=== PATIENT | female | born 1955 | race Caucasian/White ===

== ENCOUNTER 2016-07-14 15:09 | Inpatient (IN) | payer OTHER ==
[~2016-07-14] VITALS: Ht 170.2 cm; Wt 59.4 kg
[2016-07-20] MEDS ORDERED: ECON0.052 TOPICAL (12:28)
[2016-07-20] MEDS ORDERED: ALEN1TAB48 PO (12:28)
[2016-07-20] MEDS ORDERED: CALC200S NASAL (12:28)
[2016-07-20] MEDS ORDERED: CIPR500T2 PO (12:28)
[2016-07-20] MEDS ORDERED: IMIT50TA PO (12:28)
[2016-07-23] MEDS ORDERED: INSULIN HUMAN REGULAR 1,000 UNITS/10 ML VIAL SQ PRN (13:00)
[2016-07-23] MEDS ORDERED: LACTATED RINGER'S 1000 ML IV SCH (13:00)
[2016-07-23] MEDS ORDERED: SODIUM CHLORID 0.9% 500 ML IV SCH (13:00)
[2016-07-23] MEDS ORDERED: METOPROLOL TARTRATE 25 MG TAB PO PRN (13:00)
[2016-07-23 13:14] VITALS: BP 118/48; PULSE 79; RESP 20; TEMP 98.5; O2SAT 97
[2016-07-23] MEDS ORDERED: ceFAZolin INJ 1,000 MG VIAL ONE (13:48)
[2016-07-23] MEDS ORDERED: SODIUM CHLORIDE 0.9% INJ 100 ML ONE (13:48)
[2016-07-23] MEDS ORDERED: ALVIMOPAN 12 MG CAPSULE ONE (13:48)
[2016-07-23] MEDS ORDERED: metroNIDAZOLE 500 MG INJ 100 ML IV ONE (13:48)
[2016-07-23] MEDS ORDERED: ceFAZolin 1,000 MG/NS 100 ML IV SCH ×2 (14:15)
[2016-07-23] MEDS ORDERED: ALVIMOPAN 12 MG CAPSULE - On Call PO SCH (14:15)
[2016-07-23] MEDS ORDERED: METRONIDAZOLE 500 MG/100 ML ISONTONIC SOLN IV SCH (14:15)
[2016-07-23] MEDS ORDERED: DEXT 5%-NACL 0.9% 1000 ML INJ 1,000 ML IV SCH (14:15)
[2016-07-23] MEDS ORDERED: PROPOFOL 200 MG/20 ML AMP IV ONE (14:54)
[2016-07-23] MEDS ORDERED: NORMOSOL R INJ 1,000 ML IV ONE (14:54)
[2016-07-23] MEDS ORDERED: ePHEDrine/NS 25 MG/5 ML SYR IV ONE (14:54)
[2016-07-23] MEDS ORDERED: PHENYLEPH/NS 1000 MCG/10 ML SYR IV ONE (14:54)
[2016-07-23] MEDS ORDERED: ONDANSETRON HCL 4 MG/2 ML VIAL IV PUSH ONE (14:54)
[2016-07-23] MEDS ORDERED: FAMOTIDINE 20 MG/2 ML VIAL ONE (15:04)
[2016-07-23] MEDS ORDERED: DEXAMETHASONE SOD PHOS 4 MG/ML VIAL ONE (15:04)
[2016-07-23] MEDS ORDERED: MIDAZOLAM HCL 2 MG/2 ML VIAL ONE (15:04)
[2016-07-23] MEDS ORDERED: BUPIVACAINE HCL PF 0.5% 30 ML VIAL ONE (15:25)
[2016-07-23] MEDS ORDERED: FLUORESCEIN SOD 10% SOLN 500 MG/5 ML AMP ONE (15:25)
--- NOTE | 2016-07-23 16:31 | PD.OP ---
Operative Report Date of Surgery: Jul 23, 2016 Preoperative Diagnosis: Colovesical fistula Postoperative Diagnosis: same Procedure: cysto with b/l ureteral catheter insertion Anesthesia: GETA Surgeon: Russ Murray Metal Cut Off Saw Tender(s): none Resident Surgeon: none Operation and Findings: 61 y.o female with h/o colovesical fistula. Requests were made for bilateral ureteral catheter insertion. Patient is brought to operating room and identified by myself as Yamile Valles. She was prepped and draped in usual sterile fashion, received preprocedure antibiotics and general endotracheal tube anesthesia was administered. She was placed in dorsal lithotomy position. A 22 [place]ican scope was inserted in the bladder. The left ureter orifice was identified and a 5 [place] open catheter was inserted without difficulty. This was repeated on the right side without difficulty. A 16 [place] Stephen was inserted in the bladder and the catheters were anchored to the Stephen catheter. She tolerated the procedure well. Russ Murray DO Jul 23, 2016 16:31
[2016-07-23] MEDS ORDERED: ACETAMINOPHEN 1000 MG/100 ML VIAL IV ONE (17:37)
[2016-07-23] MEDS ORDERED: SUGAMMADEX SODIUM 200 MG/2 ML VIAL IV PUSH ONE ×2 (17:37)
[2016-07-23] MEDS ORDERED: fentaNYL CITRATE 250 MCG/5 ML AMP ONE ×2 (17:41)
[2016-07-23] MEDS ORDERED: ONDANSETRON HCL 4 MG/2 ML VIAL IV PRN (18:30)
[2016-07-23] MEDS ORDERED: ENALAPRILAT 1.25 MG/ML VIAL IV PRN (18:30)
[2016-07-23] MEDS ORDERED: POTASSIUM CHLOR 20 MEQ PREMIX 100 ML IV PRN (18:30)
[2016-07-23] MEDS ORDERED: SODIUM CHLORIDE 0.9% FLUSH 10 ML FLUSH IV FLUSH PRN (18:30)
[2016-07-23] MEDS ORDERED: Post-op Orders (for Pharmacy) MISC XX ONE (18:30)
[2016-07-23] MEDS ORDERED: POTASSIUM CHLOR 40 MEQ PREMIX 100 ML IV PRN (18:30)
[2016-07-23] MEDS ORDERED: ZOLPIDEM TARTRATE 5 MG TAB PO PRN (18:30)
[2016-07-23] MEDS ORDERED: NALOXONE HCL 0.4 MG/ML AMP IV PRN (18:30)
[2016-07-23] MEDS ORDERED: BENZOCAINE 6 MG/MENTHOL 10 MG LOZENGE SUCK-ON PRN (18:30)
[2016-07-23] MEDS ORDERED: ECONAZOLE 1% TOPICAL PRN (18:45)
[2016-07-23] MEDS ORDERED: D5-LR + KCL 20 MEQ INJ 1,000 ML ONE (18:47)
[2016-07-23] MEDS: D5-LR + KCL 20 MEQ INJ 1,000 ML IV SCH ×2 (18:50→23:27)
[2016-07-23] MEDS ORDERED: DO NOT ADM ANY ANTICOAGULANT DRUGS XX PRN (19:00)
[2016-07-23] MEDS ORDERED: *morphine SULFATE 8 MG/ML PERIprocedure ONLY ONE ×3 (19:00→19:54)
[2016-07-23] MEDS: MORPHINE SULFATE 30 MG/30 ML PCA IV SCH (19:17)
[2016-07-23 19:30] LABS: AUTOMATED NEUTROPHIL # 9.6 TH/MM3 (1.8-7.7); BASOPHIL % 0.3 % (0.0-2.0); EOSINOPHIL % 0.1 % (0.0-4.0); HEMATOCRIT 30.7 % (35.0-46.0); HEMO FLAGS DIFF FINAL; LYMPHOCYTE # 0.6 TH/MM3 (1.0-4.8); MEAN CELL VOLUME 81.2 FL (80.0-100.0); MEAN CORPUSCULAR HEMOGLOBIN 27.3 PG (27.0-34.0); MEAN CORPUSCULAR HGB CONC 33.6 % (32.0-36.0); MONO % 2.1 % (0.0-8.0); NEUT % 91.5 % (16.0-70.0); PLATELET COUNT 189 TH/MM3 (150-450); RED BLOOD COUNT 3.78 MIL/MM3 (4.00-5.30); RED CELL DISTRIBUTION WIDTH 14.6 % (11.6-17.2); WHITE BLOOD COUNT 10.5 TH/MM3 (4.0-11.0)
[2016-07-23] MEDS: ceFAZolin 2 GM PREMIX 50 ML IV SCH (19:30)
[2016-07-23 19:46] LABS: BICARBONATE 24.9 MEQ/L (21.0-32.0)
[2016-07-23] MEDS: FUROSEMIDE 20 MG/2 ML VIAL IV SCH (20:00)
[2016-07-23 20:03] LABS: CALCIUM-PROTEIN CORRECTED 7.2 MG/DL (8.5-10.1); POTASSIUM 2.6 MEQ/L (3.5-5.1)
[2016-07-23] MEDS ORDERED: *HYDROmorphone PF 1 MG VIAL PERIprocedural Use ONLY ONE (20:12)
[2016-07-23 20:40] VITALS: BP 80/53; PULSE 97; RESP 16; TEMP 97.8; O2SAT 98
[2016-07-23 21:00] VITALS: PULSE 90
[2016-07-23] MEDS: SODIUM CHLORIDE 0.9% FLUSH 10 ML FLUSH IV FLUSH SCH (21:00)
[2016-07-23 22:00] VITALS: PULSE 80
[2016-07-23] MEDS: PCA - TOTAL MG MORPHINE DELIVERED PER SHIFT SCH (22:00)
[2016-07-23] MEDS: metroNIDAZOLE 500 MG INJ 100 ML IV SCH (22:03)
[2016-07-23] MEDS: METOCLOPRAMIDE HCL 10 MG/2 ML VIAL IVS SCH (22:04)
[2016-07-23 23:00] VITALS: PULSE 74; RESP 20
[2016-07-23 23:30] VITALS: BP 114/53; PULSE 71; RESP 16; TEMP 97.5; O2SAT 99
[2016-07-24] VITALS (26 sets, daily range): BP systolic 115–145; BP diastolic 59–70; PULSE 64–96; RESP 12–20; TEMP 97.3–98.8; O2SAT 95–98
[2016-07-24] MEDS: D5-LR + KCL 20 MEQ INJ 1,000 ML IV SCH ×4 (04:13→23:33)
[2016-07-24] MEDS: ceFAZolin 2 GM PREMIX 50 ML IV SCH ×2 (05:27→12:51)
[2016-07-24] MEDS: metroNIDAZOLE 500 MG INJ 100 ML IV SCH ×2 (05:27→15:02)
[2016-07-24] MEDS: PCA - TOTAL MG MORPHINE DELIVERED PER SHIFT SCH ×3 (05:28→22:00)
[2016-07-24] MEDS: METOCLOPRAMIDE HCL 10 MG/2 ML VIAL IVS SCH ×4 (05:28→23:27)
[2016-07-24 06:43] LABS: AUTOMATED NEUTROPHIL # 9.7 TH/MM3 (1.8-7.7); BASOPHIL % 0.1 % (0.0-2.0); HEMATOCRIT 32.7 % (35.0-46.0); HEMO FLAGS DIFF FINAL; LYMPHOCYTE # 0.7 TH/MM3 (1.0-4.8); MEAN CELL VOLUME 80.6 FL (80.0-100.0); MEAN CORPUSCULAR HEMOGLOBIN 26.1 PG (27.0-34.0); MEAN CORPUSCULAR HGB CONC 32.4 % (32.0-36.0); MONO % 7.1 % (0.0-8.0); NEUT % 86.8 % (16.0-70.0); PLATELET COUNT 215 TH/MM3 (150-450); RED BLOOD COUNT 4.06 MIL/MM3 (4.00-5.30); WHITE BLOOD COUNT 11.1 TH/MM3 (4.0-11.0)
[2016-07-24 07:19] LABS: BICARBONATE 28.5 MEQ/L (21.0-32.0); POTASSIUM 4.3 MEQ/L (3.5-5.1)
[2016-07-24] MEDS: PANTOPRAZOLE SODIUM 40 MG VIAL IVP SCH (10:21)
[2016-07-24] MEDS: FUROSEMIDE 20 MG/2 ML VIAL IV SCH ×2 (10:21→22:16)
[2016-07-24] MEDS: ALVIMOPAN 12 MG CAPSULE - Post-op dosing PO SCH ×2 (10:21→22:16)
[2016-07-24] MEDS: KETOROLAC TROMETHAMINE 30 MG/ML (IVP) VIAL IVP PRN ×2 (10:22→23:25)
[2016-07-24] MEDS: SODIUM CHLORIDE 0.9% FLUSH 10 ML FLUSH IV FLUSH SCH ×2 (10:22→22:20)
--- NOTE | 2016-07-24 17:45 | HHI.PR ---
Subjective Remarks No N or V. Some bilious stool in Ileostomy bag. C/O pain Objective Vital Signs Date Time Temp Pulse Resp B/P Pulse Ox O2 Delivery O2 Flow Rate FiO2 07/24/16 16:00 98.7 80 15 121/60 98 07/24/16 15:02 15 07/24/16 14:00 16 07/24/16 13:00 84 07/24/16 12:00 98.0 78 16 134/59 95 07/24/16 12:00 96 07/24/16 11:00 88 07/24/16 10:00 88 07/24/16 09:00 78 07/24/16 08:00 97.3 77 15 118/69 96 07/24/16 08:00 86 07/24/16 07:00 80 07/24/16 06:00 20 07/24/16 06:00 80 07/24/16 05:28 20 07/24/16 05:00 78 07/24/16 04:00 80 07/24/16 03:39 97.9 79 12 115/64 98 07/24/16 03:00 71 07/24/16 02:00 70 07/24/16 01:00 76 07/24/16 00:00 76 07/23/16 23:30 97.5 71 16 114/53 99 07/23/16 23:00 20 07/23/16 23:00 74 07/23/16 22:00 80 07/23/16 21:00 90 07/23/16 20:40 97.8 97 16 80/53 98 07/23/16 20:00 90 16 112/70 98 Nasal Cannula 2 07/23/16 19:30 82 16 134/65 99 Nasal Cannula 2 07/23/16 19:17 16 07/23/16 19:15 82 16 127/67 99 Nasal Cannula 2 07/23/16 19:00 82 16 112/52 99 Nasal Cannula 2 07/23/16 18:45 84 16 153/66 99 Nasal Cannula 2 07/23/16 18:33 98.5 100 16 141/69 99 Nasal Cannula 2 I/O 07/23/16 07/23/16 07/23/16 07/24/16 07/24/16 07/24/16 07:00 15:00 23:00 07:00 15:00 23:00 Intake Total 100 ml 2240 ml 2020 ml Output Total 610 ml 1970 ml 940 ml Balance -510 ml 270 ml 1080 ml Intake Oral 240 ml 420 ml IV Total 100 ml 2000 ml 1600 ml Output Urine Total 550 ml 1800 ml 800 ml Drainage Total 60 ml 170 ml 140 ml # Bowel Movements 0 0 Result Diagram: 07/24/1608 07/24/16 06 Objective Remarks VS-S Abd: flat,soft,stoma pink I&Os-OK Labs-OK Assessment and Plan Assessment and Plan Stable POD#1 Decrease IVs, OOB,ambulate. D/C RN ADMISSION in AM. FLD in AM Dillon Marie MD Jul 24, 2016 17:45
[2016-07-24] MEDS: ACETAMINOPHEN/HYDROcodone 325 MG/5 MG TAB PO PRN (18:37)
[2016-07-24] MEDS ORDERED: ALVIMOPAN 12 MG CAPSULE PO SCH (21:00)
[2016-07-25] VITALS (28 sets, daily range): BP systolic 113–136; BP diastolic 63–77; PULSE 72–98; RESP 16–18; TEMP 98–98.8; O2SAT 95–97
[2016-07-25] MEDS: MORPHINE SULFATE 30 MG/30 ML PCA IV SCH (04:44)
[2016-07-25] MEDS: KETOROLAC TROMETHAMINE 30 MG/ML (IVP) VIAL IVP PRN ×2 (05:56→16:48)
[2016-07-25] MEDS: METOCLOPRAMIDE HCL 10 MG/2 ML VIAL IVS SCH ×3 (05:59→17:55)
[2016-07-25] MEDS: PCA - TOTAL MG MORPHINE DELIVERED PER SHIFT SCH (06:00)
[2016-07-25 06:20] LABS: AUTOMATED NEUTROPHIL # 10.4 TH/MM3 (1.8-7.7); BASOPHIL % 0.2 % (0.0-2.0); EOSINOPHIL # 0.2 TH/MM3 (0-0.4); EOSINOPHIL % 1.4 % (0.0-4.0); HEMATOCRIT 28.5 % (35.0-46.0); HEMO FLAGS DIFF FINAL; LYMPH % 12.7 % (9.0-44.0); LYMPHOCYTE # 1.7 TH/MM3 (1.0-4.8); MEAN CELL VOLUME 80.1 FL (80.0-100.0); MEAN CORPUSCULAR HEMOGLOBIN 26.1 PG (27.0-34.0); MEAN CORPUSCULAR HGB CONC 32.6 % (32.0-36.0); MONO % 8.4 % (0.0-8.0); NEUT % 77.3 % (16.0-70.0); PLATELET COUNT 203 TH/MM3 (150-450); RED BLOOD COUNT 3.56 MIL/MM3 (4.00-5.30); RED CELL DISTRIBUTION WIDTH 14.5 % (11.6-17.2); WHITE BLOOD COUNT 13.4 TH/MM3 (4.0-11.0)
[2016-07-25 06:37] LABS: BICARBONATE 29.4 MEQ/L (21.0-32.0); POTASSIUM 3.9 MEQ/L (3.5-5.1)
[2016-07-25] MEDS: SODIUM CHLORIDE 0.9% FLUSH 10 ML FLUSH IV FLUSH SCH ×2 (09:00→21:00)
[2016-07-25] MEDS: PANTOPRAZOLE SODIUM 40 MG VIAL IVP SCH (09:16)
[2016-07-25] MEDS: D5-LR + KCL 20 MEQ INJ 1,000 ML IV SCH ×2 (09:16→22:12)
[2016-07-25] MEDS: FUROSEMIDE 20 MG/2 ML VIAL IV SCH ×2 (09:16→22:14)
[2016-07-25] MEDS: ALVIMOPAN 12 MG CAPSULE - Post-op dosing PO SCH ×2 (09:17→22:14)
[2016-07-25] MEDS: ACETAMINOPHEN/HYDROcodone 325 MG/5 MG TAB PO PRN ×2 (09:17→22:13)
--- NOTE | 2016-07-25 11:58 | HHI.PR ---
Subjective Remarks POD#2 s/p LAR, ileostomy more comfortable Objective Vital Signs Date Time Temp Pulse Resp B/P Pulse Ox O2 Delivery O2 Flow Rate FiO2 07/25/16 11:00 98.0 77 18 114/67 96 07/25/16 09:00 88 07/25/16 08:00 72 07/25/16 07:00 98.5 79 18 115/63 95 07/25/16 07:00 73 07/25/16 06:31 16 07/25/16 06:00 80 07/25/16 06:00 16 07/25/16 05:00 86 07/25/16 04:49 92 16 136/73 96 07/25/16 04:44 16 07/25/16 04:00 74 07/25/16 03:00 77 07/25/16 02:00 72 07/25/16 01:00 80 07/25/16 00:00 78 07/24/16 23:00 80 07/24/16 23:00 98.5 87 16 145/70 98 07/24/16 22:00 16 07/24/16 22:00 16 07/24/16 22:00 84 07/24/16 21:00 76 07/24/16 20:10 98.8 87 18 131/66 96 07/24/16 20:00 78 07/24/16 19:00 85 07/24/16 18:04 79 07/24/16 17:00 64 07/24/16 16:00 98.7 80 15 121/60 98 07/24/16 16:00 64 07/24/16 15:02 15 07/24/16 15:00 82 07/24/16 14:00 16 07/24/16 14:00 78 07/24/16 13:00 84 07/24/16 12:00 98.0 78 16 134/59 95 07/24/16 12:00 96 I/O 07/24/16 07/24/16 07/24/16 07/25/16 07/25/16 07/25/16 07:00 15:00 23:00 07:00 15:00 23:00 Intake Total 2240 ml 2020 ml 3620 ml Output Total 1970 ml 940 ml 1930 ml Balance 270 ml 1080 ml 1690 ml Intake Oral 240 ml 420 ml 2420 ml IV Total 2000 ml 1600 ml 1200 ml Output Urine Total 1800 ml 800 ml 1850 ml Drainage Total 170 ml 140 ml 80 ml # Bowel Movements 0 0 0 Result Diagram: 07/25/1628 07/25/16527 Objective Remarks Abdomen soft, nondistended, tender Dressings c/d/i Ileostomy pink, liquid output Assessment and Plan Assessment and Plan Mobilize Slowly advance diet Alicia Correa MD Jul 25, 2016 11:58
[2016-07-26] MEDS: KETOROLAC TROMETHAMINE 30 MG/ML (IVP) VIAL IVP PRN (00:18)
[2016-07-26] MEDS: METOCLOPRAMIDE HCL 10 MG/2 ML VIAL IVS SCH ×5 (00:18→23:24)
[2016-07-26 04:57] VITALS: BP 124/70; PULSE 86; RESP 16; O2SAT 96
[2016-07-26] MEDS: ACETAMINOPHEN/HYDROcodone 325 MG/5 MG TAB PO PRN ×4 (05:22→18:01)
[2016-07-26 07:00] VITALS: BP 125/78; PULSE 86; RESP 18; TEMP 98.4; O2SAT 94
[2016-07-26] MEDS: SODIUM CHLORIDE 0.9% FLUSH 10 ML FLUSH IV FLUSH SCH ×2 (08:14→19:40)
[2016-07-26] MEDS: ALVIMOPAN 12 MG CAPSULE - Post-op dosing PO SCH ×2 (08:14→19:42)
[2016-07-26] MEDS: FUROSEMIDE 20 MG/2 ML VIAL IV SCH (08:14)
[2016-07-26] MEDS: PANTOPRAZOLE SODIUM 40 MG VIAL IVP SCH (08:14)
[2016-07-26] MEDS: D5-LR + KCL 20 MEQ INJ 1,000 ML IV SCH ×2 (08:15→23:24)
[2016-07-26 11:00] VITALS: BP 111/67; PULSE 89; RESP 18; TEMP 98.1; O2SAT 96
--- NOTE | 2016-07-26 13:04 | HHI.PR ---
Subjective Remarks POD#3 s/p LAR, ileostomy more comfortable, tolerating diet Objective Vital Signs Date Time Temp Pulse Resp B/P Pulse Ox O2 Delivery O2 Flow Rate FiO2 07/26/16 11:00 98.1 89 18 111/67 96 07/26/16 07:00 98.4 86 18 125/78 94 07/26/16 04:57 86 16 124/70 96 07/25/16 23:59 93 16 124/77 97 07/25/16 23:00 79 07/25/16 22:00 88 07/25/16 21:00 78 07/25/16 20:00 98 07/25/16 19:15 98.8 84 16 119/64 95 07/25/16 19:00 82 07/25/16 18:00 77 07/25/16 17:00 76 07/25/16 16:00 83 07/25/16 15:00 98.5 84 18 113/67 96 07/25/16 15:00 73 07/25/16 14:00 16 07/25/16 14:00 86 I/O 07/25/16 07/25/16 07/25/16 07/26/16 07/26/16 07/26/16 07:00 15:00 23:00 07:00 15:00 23:00 Intake Total 3620 ml 1200 ml 1290 ml Output Total 1930 ml 2435 ml 1320 ml Balance 1690 ml -1235 ml -30 ml Intake Oral 2420 ml 1200 ml 450 ml IV Total 1200 ml 840 ml Output Urine Total 1850 ml 2080 ml 800 ml Stool Total 225 ml 400 ml Drainage Total 80 ml 130 ml 120 ml # Bowel Movements 0 1 Result Diagram: 07/25/16 0528 07/25/16 0528 Objective Remarks Abdomen soft, nondistended, tender wound clean, scant serosanguinous drainage Ileostomy pink, liquid output Assessment and Plan Assessment and Plan Mobilize Advance diet Ileostomy teaching Alicia Correa MD Jul 26, 2016 13:04
[2016-07-26 16:00] VITALS: BP 128/58; PULSE 85; RESP 17; TEMP 98.6; O2SAT 95
[2016-07-26 20:00] VITALS: BP 122/67; PULSE 89; RESP 17; TEMP 97.3; O2SAT 96
[2016-07-27] VITALS: BP 120/65; PULSE 82; RESP 17; TEMP 97; O2SAT 97
[2016-07-27] MEDS: ACETAMINOPHEN/HYDROcodone 325 MG/5 MG TAB PO PRN ×6 (00:06→21:27)
[2016-07-27] MEDS: METOCLOPRAMIDE HCL 10 MG/2 ML VIAL IVS SCH ×4 (06:14→21:27)
[2016-07-27 08:00] VITALS: BP 130/61; PULSE 88; RESP 18; TEMP 97.4; O2SAT 95
[2016-07-27] MEDS: ALVIMOPAN 12 MG CAPSULE - Post-op dosing PO SCH ×2 (08:13→20:26)
[2016-07-27] MEDS: PANTOPRAZOLE SODIUM 40 MG VIAL IVP SCH (08:14)
[2016-07-27] MEDS: SODIUM CHLORIDE 0.9% FLUSH 10 ML FLUSH IV FLUSH SCH ×2 (08:15→20:27)
--- NOTE | 2016-07-27 10:29 | HHI.FF ---
Face to Face Verification Diagnosis: (1) Diverticulitis large intestine (2) Ileostomy in place (3) Status post partial resection of colon Home Health Nursing Order: Medical education Wound care and dressing changes Nursing assessment with vital signs Instructions: Stoma teaching and measure Ileostomy total output every 24hrs. Call if over 1200 cc in 24hrs I have seen patient Yamile Valles on 07/27/16. My clinical findings support the need for the requested home health care services because: Deconditioned w/ increased weakness Limited ability to care for self I certify that my clinical findings support that this patient is homebound because: Post-op weakness Unsteady gait/balance Dillon Marie MD Jul 27, 2016 10:29
--- NOTE | 2016-07-27 10:32 | HHI.PR ---
Subjective Remarks No N or V. Stool in Ileostomy bag. C/O pain Objective Vital Signs Date Time Temp Pulse Resp B/P Pulse Ox O2 Delivery O2 Flow Rate FiO2 07/27/16 08:00 97.4 88 18 130/61 95 07/27/16 00:00 97.0 82 17 120/65 97 07/26/16 20:00 97.3 89 17 122/67 96 07/26/16 16:00 98.6 85 17 128/58 95 07/26/16 11:00 98.1 89 18 111/67 96 I/O 07/26/16 07/26/16 07/26/16 07/27/16 07/27/16 07/27/16 07:00 15:00 23:00 07:00 15:00 23:00 Intake Total 1290 ml 1670 ml 596 ml Output Total 1320 ml 2545 ml 830 ml Balance -30 ml -875 ml -234 ml Intake Oral 450 ml 1320 ml 240 ml IV Total 840 ml 350 ml 356 ml Output Urine Total 800 ml 1500 ml 500 ml Stool Total 400 ml 875 ml 250 ml Drainage Total 120 ml 170 ml 80 ml Result Diagram: 07/25/16 0528 07/25/16 0528 Objective Remarks VS-S Abd: flat,soft,stoma pink I&Os-OK Labs-OK Assessment and Plan Assessment and Plan Stable POD#4 Decrease IVs, OOB,ambulate. Increase to regular diet. Drain removed by me. D/C tomorrow with [facility] Dillon Marie MD Jul 27, 2016 10:32
[2016-07-27 12:00] VITALS: BP 128/60; PULSE 96; RESP 18; TEMP 97.4; O2SAT 99
--- NOTE | 2016-07-27 13:11 | MP ---
cc: LUCITA MARIE M.D. DATE OF SURGERY 07/23/2016 PREOPERATIVE DIAGNOSIS Diverticulitis with colovaginal fistula. POSTOPERATIVE DIAGNOSIS Diverticulitis with colovaginal fistula. PROCEDURE 1. Rectosigmoidectomy with colorectal anastomosis. 2. Small bowel resection with anastomosis. 3. Closure of vaginal cuff. 4. Mobilization of the splenic flexure with an omental flap in the pelvis. ANESTHESIA General endotracheal. SURGEON Dr. Marie. HANDLE MAKER Dr. Boland. ESTIMATED BLOOD LOSS 500 cc. OPERATING TIME 2 hours and 15 minutes OPERATIVE FINDINGS This patient saw me in the office about three weeks ago with a newly developed colovaginal fistula. She had severe diverticular disease on colonoscopy approximately eight months ago elsewhere requiring an upper GI endoscope to pass the sigmoid colon. Since that time she developed several bouts of diverticulitis and was treated with antibiotics and then eventually developed this colovaginal fistula as mentioned. She has had a previous total abdominal hysterectomy. On exam in my office she had a fistula to the apex of her vagina and she had a large palpable cul-de-sac mass consistent with diverticulitis with the sigmoid in the cul-de-sac. Exploration of the abdominal cavity at surgery revealed that the liver, gallbladder and stomach were all palpably normal. The colon was all palpably normal except for the sigmoid colon. There was a mass in the cul-de-sac and there was a loop of distal small bowel stuck down in that mass. For this reason the loop of small bowel was resected en bloc with the sigmoid and upper rectum. A fairly low rectal anastomosis was done because of the inflammation in the upper and middle rectum due to the diverticular mass. Therefore diverting loop ileostomy was done as well to protect the anastomosis. OPERATIVE TECHNIQUE The patient was placed on the table in the supine position. After adequate general endotracheal anesthesia, the legs were placed in the perineal-lithotomy position and the abdomen and perineum were prepped and draped in usual manner. A vaginal prep was also done. Next, a transverse infraumbilical skin incision was made and carried down through the subcutaneous tissue and rectus muscles. The peritoneal cavity was entered with the above-mentioned findings. Our attention was first turned to the sigmoid and it was mobilized along its peritoneal reflection including the descending colon up to and including the splenic flexure. The cecum was also mobilized up out of pelvis; however, it was tethered by the terminal ileum which was stuck densely to the process in the pelvis. The terminal ileum was divided with an Ethicon ISI 55 stapling device and the ileum just proximal to this mass also was divided with an Ethicon ISI 55 stapling device. The mesentery of the small bowel was then clamped, cut and successively ligated in order to move the remainder of the small bowel up out of the pelvis. Once this was done, the superior hemorrhoidal vessels were doubly clamped, cut and doubly ligated with 0 Vicryl ligatures and the retrorectal space was entered. The dissection was taken down posteriorly and laterally and the left and right ureters were identified and protected at all times after Dr. Russ Murray placed bilateral ureteral catheters. The lateral pelvic peritoneum was incised bilaterally and the dissection was taken anteriorly posterior to the bladder, taken down along the bladder posteriorly until the vaginal cuff was reached. A sponge stick was then placed in the vagina and the dissection off the vaginal cuff was done opening the vaginal cuff in the process. Once this was done, the remainder of the cul-de-sac posterior to the vagina and anterior to the rectum was mobilized to the pelvic floor. The rectum was quite large and because we are in the lower-third of the rectum and the size of the rectum, the mesentery was divided with electrocautery and the rectum was then stapled closed with a TX 60 stapler using the green staple height billie. The rectum was then divided bringing the specimen up out of the pelvis. Our attention was then turned to the vagina and the apex of the vagina was closed with 0 Vicryl suture in a single running fashion. Once this was done, hemostasis was maintained throughout with electrocautery and ligature. The pelvis was irrigated thoroughly and aspirated dry. Next, our attention was turned to the splenic flexure which was fully mobilized as was the transverse colon and the omentum was mobilized from the transverse colon so that we would have an omental flap to placed in the pelvis. Once this was accomplished, the remainder of the sigmoid mesentery was cleared at the point of division of the colon. The pursestring stapling device was placed on the colon and the colon was divided. The anvil of the Ethicon-33 stapling device was placed in the proximal bowel and the proximal pursestring was tied down. Dr. Boland then went below and placed the EEA instrument transanally and the trocar was brought out through the left corner of the rectal staple line and the instrument was connected, closed and fired creating the anastomosis with no tension on the anastomosis and some tension on the blood supply. The colon fell nicely into the deep portion of the pelvis. The left colic vessels were left intact. Next, our attention was turned to the small bowel and the small bowel was reanastomosed using the Ethicon ISI 55 stapling device along the antimesenteric border of the bowel and then the enterotomy was closed with a TX60 blue staple height stapler. The opening in the mesentery was approximated with a running 3-0 Vicryl suture. Once this was all done, diverting loop ileostomy was created by creating a stoma site in the right upper quadrant in the lateral portion of the rectus muscle and then the point in the small bowel was chosen for the loop ileostomy and opening was made in the mesentery and the bowel was brought out through the stoma site. The abdominal cavity was irrigated thoroughly with several liters of saline solution. A flat Vance drain was placed through a right lower quadrant stab wound in the pelvis posterior to the colorectal anastomosis. Because of difficult dissection and the lowness of the anastomosis, ileostomy diversion was done. The omentum was brought down the left colic gutter and placed behind the colorectal anastomosis and then wrapped around to the front the colorectal anastomosis from the vaginal cuff closure. Once this was accomplished, all the bowels were replaced in the abdominal cavity in an customer experience analyst manner. The abdominal cavity had been irrigated with several liters of saline solution, aspirated dry and hemostasis was achieved with electrocautery and ligature. Once this was done, the abdominal cavity was then closed in layers using a double-stranded #1 PDS for the posterior rectus sheath, irrigating the muscle layer with a liter of saline solution, then closed the anterior rectus sheath with double-stranded #1 PDS as well. The subcutaneous tissue was irrigated thoroughly with saline solution, aspirated dry and skin was closed with running 3-0 Vicryl subcuticular sutures. The ileostomy was closed distally with a TX60 blue staple height stapling device and then the ileostomy was matured in an end-ileostomy fashion using interrupted 3-0 Vicryl sutures. Once this was done, a 57-mm appliance was placed on the ileostomy and dressings were applied. Sponge, needle and instrument counts were reported as correct. The estimated blood loss was 500 cc. The patient tolerated the procedure well and left the operating room in good condition. OPERATING TIME 2 hours and 15 minutes. MD LAURA Francois/YVONNE /10:51 PM /12:52 PM
[2016-07-27] MEDS: D5-LR + KCL 20 MEQ INJ 1,000 ML IV SCH (15:47)
[2016-07-27 16:00] VITALS: BP 127/59; PULSE 79; RESP 17; TEMP 97.9; O2SAT 97
[2016-07-27 20:00] VITALS: BP 120/56; PULSE 78; RESP 18; TEMP 97; O2SAT 97
[2016-07-28] VITALS: BP 112/55; PULSE 79; RESP 18; TEMP 98.2; O2SAT 96
[2016-07-28] MEDS: ACETAMINOPHEN/HYDROcodone 325 MG/5 MG TAB PO PRN ×5 (01:22→18:03)
[2016-07-28] MEDS: METOCLOPRAMIDE HCL 10 MG/2 ML VIAL IVS SCH ×3 (05:25→16:31)
[2016-07-28 08:00] VITALS: BP 114/53; PULSE 76; RESP 18; TEMP 96.2; O2SAT 97
[2016-07-28] MEDS: PANTOPRAZOLE SODIUM 40 MG VIAL IVP SCH (09:00)
[2016-07-28] MEDS: SODIUM CHLORIDE 0.9% FLUSH 10 ML FLUSH IV FLUSH SCH (09:00)
[2016-07-28] MEDS: ALVIMOPAN 12 MG CAPSULE - Post-op dosing PO SCH (09:10)
[2016-07-28] MEDS: D5-LR + KCL 20 MEQ INJ 1,000 ML IV SCH (09:10)
[2016-07-28] MEDS ORDERED: HYDR-3516 PO (15:54)
[2016-07-28 16:00] VITALS: BP 108/53; PULSE 86; RESP 19; TEMP 96.3; O2SAT 98
--- NOTE | 2016-08-16 06:10 | MD ---
cc: DANDY MANNING ADMISSION DATE: 07/23/2016 DISCHARGE DATE: 07/28/2016 ADMISSION DIAGNOSIS Diverticulitis with colovaginal fistula. DISCHARGE DIAGNOSIS Diverticulitis with colovaginal fistula. OPERATIVE PROCEDURE 07/23/2016 1. Rectosigmoidectomy with colorectal anastomosis. 2. Small bowel resection with anastomosis. 3. Closure of vaginal cuff. 4. Mobilization of the splenic flexure and omental flap placement in the pelvis. HISTORY: This patient saw me in the office approximately three weeks prior to this admission with a newly developed colovaginal fistula. She had severe diverticular disease on colonoscopy approximately 8 months ago done elsewhere requiring an upper GI endoscope to pass the sigmoid colon. At that time she developed several bouts of diverticulitis, was treated with antibiotics and eventually developed colovaginal fistula several weeks ago. She has had a previous total abdominal hysterectomy as well. On exam in my office she had a fistula to the apex of her vagina and had a large palpable cul-de-sac mass consistent with diverticulitis with the sigmoid in the cul-de-sac. LABORATORY DATA The pathology report on the removed specimen revealed that there was colon and small intestine with a tortuous segment of colon with diverticulosis and severe acute diverticulitis with peridiverticular abscess formation. There was adherent small intestine in the area of the abscess on previous preparation. There were two benign pericolonic lymph nodes. There was no evidence of malignancy here. HOSPITAL COURSE: The patient was admitted to the hospital on 07/23/2016 and underwent resection as mentioned. On the first postoperative day, the patient had some bilious drainage from her ileostomy. She had no nausea or vomiting. She was started on clear liquid diet and on the second postoperative day was started on full liquids. On 07/25 the second postoperative day she was started on full liquids as mentioned and on the third postoperative day she was started on regular diet. On the fourth postoperative day she was again continued on regular diet and her drain was removed by me. She was discharged from the hospital on postoperative day #5 in good condition. She was instructed to do no driving for two weeks, do no heavy lifting for six weeks and to call me with any problems. She was instructed to follow up with me in the office in two weeks time. MD LAURA Francois/TERRY /1:10 PM /5:13 AM
== END 2016-07-28 18:06 | disposition home health service (06) | DRG 330 ==
LOC: HSDI 07-23 12:29 → HCIN 07-23 20:43 → N07B 07-26 16:07 → N07A 07-27 22:02 → N07B 07-27 22:02 → UNDODISIN 07-28 17:49
PROVIDERS: ADMIT Colon & Rectal Surgery; ATTEND Colon & Rectal Surgery
PROC: 0WUF07Z Supplement Abdominal Wall with Autologous Tissue Substitute, Open Approach (ICD-10-PCS; 2016-07-23)
PROC: 0DBB0ZZ Excision of Ileum, Open Approach (ICD-10-PCS; 2016-07-23)
PROC: 0D1B0Z4 Bypass Ileum to Cutaneous, Open Approach (ICD-10-PCS; 2016-07-23)
PROC: 0T788DZ Dilation of Bilateral Ureters with Intraluminal Device, Via Natural or Artificial Opening Endoscopic (ICD-10-PCS; 2016-07-23)
PROC: 0DBP0ZZ Excision of Rectum, Open Approach (ICD-10-PCS; principal; 2016-07-23 15:35)
PROC: 0DBN0ZZ Excision of Sigmoid Colon, Open Approach (ICD-10-PCS; 2016-07-23 15:35)
DX: K57.32 Diverticulitis of large intestine without perforation or abscess without bleeding (principal); N82.3 Fistula of vagina to large intestine; Z85.3 Personal history of malignant neoplasm of breast
CPT/HCPCS: 36415; 71020; 80048; 80053; 81001; 84155; 85025; 85610; 85730; 86850; 86900; 86901; 88307; 88309; 93005; 94150; C9113; J0131; J0690; J1100; J1170; J1885; J1940; J2250; J2270; J2370; J2405; J2765; J3010; J3480; J7120

== ENCOUNTER → 2016-07-20 | Outpatient (CLI) | payer OTHER ==
[~2016-07-20] MED LIST: ALEN1TAB48 PO; CALC200S NASAL; CIPR500T2 PO; CLOP75 PO; ECON0.052 TOPICAL; HYDR-3516 PO; IMIT50TA PO; LOPE2TAB PO; OXYC-360 PO; STOO100C PO; SULF1TAB47 PO; VASO10TA8 PO
[2016-07-20 12:44] LABS: AUTOMATED NEUTROPHIL # 3.6 TH/MM3 (1.8-7.7); BASOPHIL # 0.1 TH/MM3 (0-0.2); EOSINOPHIL # 0.5 TH/MM3 (0-0.4); EOSINOPHIL % 8.1 % (0.0-4.0); HEMO FLAGS DIFF FINAL; LYMPH % 29.1 % (9.0-44.0); LYMPHOCYTE # 1.9 TH/MM3 (1.0-4.8); MEAN CELL VOLUME 80.1 FL (80.0-100.0); MEAN CORPUSCULAR HEMOGLOBIN 26.8 PG (27.0-34.0); MEAN CORPUSCULAR HGB CONC 33.5 % (32.0-36.0); MONO % 7.1 % (0.0-8.0); NEUT % 54.7 % (16.0-70.0); PLATELET COUNT 270 TH/MM3 (150-450); RED CELL DISTRIBUTION WIDTH 14.8 % (11.6-17.2); WHITE BLOOD COUNT 6.5 TH/MM3 (4.0-11.0)
[2016-07-20 12:51] LABS: BLOOD, URINE NEG (NEG); COMMENT (UR) CULT NOT INDICATED; CULTURE IF INDICATED CULT NOT INDICATED; GLUCOSE,URINE NEG (NEG); KETONE, URINE NEG (NEG); MUCUS URINE FEW /lpf (OCC); NITRITE,URINE NEG (NEG); URINE COLOR YELLOW (YELLW/STRAW)
[2016-07-20 12:53] LABS: APTT (PATIENT) 28.6 SEC (24.3-30.1); PROTHROMBIN TIME - PATIENT 10.7 SEC (9.8-11.6)
[2016-07-20 13:09] LABS: ANION GAP 8 MEQ/L (5-15); AST (GOT) 22 U/L (15-37); BICARBONATE 31.4 MEQ/L (21.0-32.0); BLOOD UREA NITROGEN 6 MG/DL (7-18); CHLORIDE 101 MEQ/L (98-107); GLOMERULAR FILTRATION RATE 100 ML/MIN (>89); GLUCOSE,FASTING 91 MG/DL (74-99); POTASSIUM 4.2 MEQ/L (3.5-5.1); SODIUM (NA) 140 MEQ/L (136-145)
[2016-07-20 13:12] LABS: ALKALINE PHOSPHATASE 63 U/L (45-117); ALT (GPT) 20 U/L (10-53); TOTAL BILIRUBIN ADULT 0.4 MG/DL (0.2-1.0)
--- NOTE | 2016-07-20 15:01 | RADRPT ---
EXAM DATE/TIME: 07/20/2016 13:11 [place] COMPARISON: No previous studies available for comparison. INDICATIONS : Evaluate for pneumonia, pneumothorax, or communicable disease. Pre op colectomy. MEDICAL HISTORY : Carcinoma, breast. Diverticulitis. SURGICAL HISTORY : Mastectomy, bilateral. ENCOUNTER: Initial ACUITY: 1 day PAIN SCORE: 0/10 LOCATION: Bilateral chest FINDINGS: PA and lateral views of the chest demonstrate the lungs to be symmetrically aerated without evidence of mass, infiltrate or effusion. The cardiomediastinal contours are unremarkable. Osseous structure s are intact. Note is made of surgical clips within the right axilla. There has been bilateral breast reconstruction. CONCLUSION: 1. Post surgical changes. No acute abnormality. Gildardo Finney MD on July 20, 2016 at 14:57 Board Certified Radiologist. This report was verified electronically.
--- NOTE | 2016-07-21 10:27 | EKG ---
Date Performed: 07/20/2016 Time Performed: 12:16:43 PTAGE: 61 years EKG: SINUS BRADYCARDIA WITH SINUS ARRHYTHMIA POSSIBLE RIGHT VENTRICULAR CONDUCTION DELAY BORDERL INE ECG NO PREVIOUS TRACING DOCTOR: Albin Hyde Interpretating Date/Time 07/21/2016 10:22:39
== END ==
LOC: CPRE 11:51
PROVIDERS: ATTEND Colon & Rectal Surgery
DX: Z01.810 Encounter for preprocedural cardiovascular examination (principal); Z01.812 Encounter for preprocedural laboratory examination; K57.32 Diverticulitis of large intestine without perforation or abscess without bleeding; N82.3 Fistula of vagina to large intestine; R00.1 Bradycardia, unspecified
CPT/HCPCS: 36415; 71020; 80053; 81001; 85025; 85610; 85730; 93005

== ENCOUNTER 2016-08-11 11:16 | Inpatient (IN) | payer OTHER ==
[~2016-08-11] VITALS: Ht 170.2 cm; Wt 55.0 kg
[~2016-08-11 11:16] MED LIST changes: -CIPR500T2 PO; -CLOP75 PO; -LOPE2TAB PO; -OXYC-360 PO; -STOO100C PO; -SULF1TAB47 PO; -VASO10TA8 PO
[2016-08-11] MEDS ORDERED: SODIUM CHLOR 0.9% 1000 ML INJ 1,000 ML IV ONE (12:45)
[2016-08-11 12:58] VITALS: BP 140/90; PULSE 98; RESP 20; TEMP 97.6; O2SAT 98
[2016-08-11 13:27] LABS: AUTOMATED NEUTROPHIL # 6.3 TH/MM3 (1.8-7.7); BASOPHIL # 0.1 TH/MM3 (0-0.2); EOSINOPHIL # 0.1 TH/MM3 (0-0.4); EOSINOPHIL % 1.5 % (0.0-4.0); HEMATOCRIT 41.7 % (35.0-46.0); HEMO FLAGS DIFF FINAL; LYMPH % 19.4 % (9.0-44.0); LYMPHOCYTE # 1.8 TH/MM3 (1.0-4.8); MEAN CELL VOLUME 81.6 FL (80.0-100.0); MEAN CORPUSCULAR HGB CONC 33.1 % (32.0-36.0); MONO % 10.5 % (0.0-8.0); NEUT % 67.6 % (16.0-70.0); PLATELET COUNT 305 TH/MM3 (150-450); RED CELL DISTRIBUTION WIDTH 15.2 % (11.6-17.2); WHITE BLOOD COUNT 9.3 TH/MM3 (4.0-11.0)
[2016-08-11] MEDS: SODIUM CHLOR 0.9% 1000 ML INJ 1,000 ML IV SCH ×2 (14:00→18:46)
[2016-08-11] MEDS ORDERED: ONDANSETRON HCL 4 MG/2 ML VIAL IV PUSH PRN (14:00)
--- NOTE | 2016-08-11 14:02 | MH ---
cc: LUCITA MANNING M.D. DATE OF ADMISSION: 08/11/2016 CHIEF COMPLAINT Nausea, vomiting, dehydration. HISTORY OF PRESENT ILLNESS This patient is almost two weeks status post sigmoid colectomy and low anterior resection with diverting ileostomy. Approximately four days ago the patient became quite nauseated, did not call my office and came into the office today with serious nausea and vomiting. She also had decreased output from her ileostomy consistent with dehydration. She is not having any real pain other than some back pain. PAST MEDICAL HISTORY, FAMILY HISTORY, SOCIAL HISTORY AND REVIEW OF SYSTEMS: Negative except for the fact that almost three weeks ago she underwent the sigmoid colectomy for diverticular disease with a colovaginal fistula. She was eating regularly until Wednesday when she became nauseated. She probably became dehydrated then subsequently developed the nausea and vomiting. PHYSICAL EXAMINATION GENERAL: A well-developed thin female in no acute distress at this time. SKIN: Warm and dry. HEENT: Extraocular muscles intact. NECK: Supple. CHEST: Clear. ABDOMEN: Flat, soft, nontender. No masses. Ileostomy in the right upper quadrant is functioning. RECTAL: Exam not done. EXTREMITIES: Range of motion within normal limits. NEUROLOGIC: Grossly normal. IMPRESSION Dehydration, nausea and vomiting secondary to high ileostomy outputs. PLAN I am going to recommend intravenous fluid resuscitation. I will obtain a stat. CBC and BMP and re-hydrate her. This should be a reversible event and we will follow her closely including I's and O's. MD LAURA Francois/DAMION /1:51 PM /1:58 PM
[2016-08-11 14:14] LABS: BICARBONATE 18.5 MEQ/L (21.0-32.0)
[2016-08-11 16:00] VITALS: BP 108/64; PULSE 79; RESP 18; TEMP 97.6; O2SAT 100
[2016-08-11 20:00] VITALS: BP 106/53; PULSE 72; RESP 20; TEMP 96.9; O2SAT 99
[2016-08-12] VITALS: BP 111/58; PULSE 77; RESP 20; TEMP 97.4; O2SAT 96
[2016-08-12] MEDS: SODIUM CHLOR 0.9% 1000 ML INJ 1,000 ML IV SCH ×2 (00:14→04:15)
[2016-08-12 07:52] LABS: AUTOMATED NEUTROPHIL # 4.5 TH/MM3 (1.8-7.7); BASOPHIL # 0.1 TH/MM3 (0-0.2); BASOPHIL % 1.4 % (0.0-2.0); EOSINOPHIL # 0.3 TH/MM3 (0-0.4); EOSINOPHIL % 4.1 % (0.0-4.0); HEMO FLAGS DIFF FINAL; LYMPH % 21.4 % (9.0-44.0); LYMPHOCYTE # 1.5 TH/MM3 (1.0-4.8); MEAN CELL VOLUME 81.7 FL (80.0-100.0); MEAN CORPUSCULAR HEMOGLOBIN 26.5 PG (27.0-34.0); MEAN CORPUSCULAR HGB CONC 32.4 % (32.0-36.0); MONO % 9.4 % (0.0-8.0); NEUT % 63.7 % (16.0-70.0); PLATELET COUNT 220 TH/MM3 (150-450); RED BLOOD COUNT 3.79 MIL/MM3 (4.00-5.30); RED CELL DISTRIBUTION WIDTH 14.5 % (11.6-17.2); WHITE BLOOD COUNT 7.1 TH/MM3 (4.0-11.0)
[2016-08-12 08:00] VITALS: BP 109/55; PULSE 74; RESP 17; TEMP 96.3; O2SAT 99
[2016-08-12 08:32] LABS: BICARBONATE 18.8 MEQ/L (21.0-32.0); POTASSIUM 3.4 MEQ/L (3.5-5.1)
--- NOTE | 2016-08-12 08:58 | HHI.PR ---
Subjective Remarks No more N or V. But has not eaten. Breakfast ordered. No high outputs from Ileostomy. Objective Vital Signs Date Time Temp Pulse Resp B/P Pulse Ox O2 Delivery O2 Flow Rate FiO2 08/12/16 00:00 97.4 77 20 111/58 96 08/11/16 20:00 96.9 72 20 106/53 99 08/11/16 16:00 97.6 79 18 108/64 100 08/11/16 12:58 97.6 98 20 140/90 98 I/O 08/11/16 08/11/16 08/11/16 08/12/16 08/12/16 08/12/16 07:00 15:00 23:00 07:00 15:00 23:00 Intake Total 0 ml 0 ml 0 ml Output Total 100 ml 300 ml 700 ml Balance -100 ml -300 ml -700 ml Intake Oral 0 ml 0 ml 0 ml Output Urine Total 0 ml 300 ml 400 ml Stool Total 100 ml 300 ml Result Diagram: 08/12/16 0614 08/12/16 06 Objective Remarks VS-S Abd: Soft,flat,stoma pink Labs-Improved markedly with IVs I&Os-OK Assessment and Plan Assessment and Plan Doing well POD#20 Improved dehydration Plan:High fiber diet, D/C in AM Dillon Marie MD Aug 12, 2016 08:58
[2016-08-12 12:00] VITALS: BP 100/49; PULSE 75; RESP 17; TEMP 96.8; O2SAT 98
[2016-08-12] MEDS: POTASSIUM CHLORIDE INJ 20 MEQ in DEXT 5%-NACL 0.9% 1000 ML INJ 1,000 ML IV SCH ×2 (12:32→18:11)
[2016-08-12] MEDS ORDERED: LOPERAMIDE HCL 2 MG CAP PO ONE (18:00)
[2016-08-12 20:14] VITALS: BP 105/53; PULSE 67; RESP 17; TEMP 96.4; O2SAT 94
[2016-08-13] MEDS: POTASSIUM CHLORIDE INJ 20 MEQ in DEXT 5%-NACL 0.9% 1000 ML INJ 1,000 ML IV SCH ×2 (00:19→10:42)
[2016-08-13 00:30] VITALS: BP 102/51; PULSE 68; RESP 17; TEMP 96.8; O2SAT 98
[2016-08-13] MEDS: LOPERAMIDE HCL 2 MG CAP PO SCH ×3 (05:40→12:05)
[2016-08-13 08:00] VITALS: BP 107/68; PULSE 67; RESP 17; TEMP 97; O2SAT 98
[2016-08-13 10:53] LABS: BICARBONATE 19.7 MEQ/L (21.0-32.0); POTASSIUM 3.8 MEQ/L (3.5-5.1)
[2016-08-13 12:00] VITALS: BP 90/31; PULSE 75; RESP 16; TEMP 96.5; O2SAT 98
[2016-08-13] MEDS ORDERED: LOPE2TAB PO (13:23)
--- NOTE | 2016-08-13 13:24 | HHI.DCPOC ---
Discharge Care Plan Diagnosis: (1) Dehydration with hyponatremia (2) Ileostomy in place Your Health Problems Are: Incision/Drains Appetite Changes Irregular Bowel Function Goals to Promote Your Health * To prevent worsening of your condition and complications * To maintain your health at the optimal level Directions to Meet Your Goals Take your medications as prescribed Follow your dietary instruction Follow activity as directed Keep your appointments as scheduled Take your immunizations and boosters as scheduled If your symptoms worsen call your PCP, if no PCP go to Urgent Care Center or Emergency Room Smoking is Dangerous to Your Health. Avoid second hand smoke Call the 24-hour hour crisis hotline for domestic abuse at Dillon Marie MD Aug 13, 2016 13:24
== END 2016-08-13 15:20 | disposition home or self-care (01) | DRG 641 ==
LOC: N07A 12:21
PROVIDERS: ADMIT Colon & Rectal Surgery; ATTEND Colon & Rectal Surgery
DX: E86.0 Dehydration (principal); K57.30 Diverticulosis of large intestine without perforation or abscess without bleeding; Z93.2 Ileostomy status
CPT/HCPCS: 80048; 85025; J2405; J3480; J7030; J7042

== ENCOUNTER 2016-11-18 10:12 | Inpatient (IN) | payer OTHER ==
[~2016-11-18] VITALS: Ht 170.2 cm; Wt 66.2 kg
[~2016-11-18 10:12] MED LIST changes: -ECON0.052 TOPICAL; -HYDR-3516 PO
[2016-11-19] MEDS ORDERED: CALC1TAB34 PO (12:37)
[2016-11-19] MEDS ORDERED: MULT-65 PO (12:37)
[2016-11-26] MEDS ORDERED: LACTATED RINGER'S 1000 ML INJ 1,000 ML IV ONE (12:00)
[2016-11-26] MEDS ORDERED: ONDANSETRON HCL 4 MG/2 ML VIAL IV PUSH ONE (12:00)
[2016-11-26] MEDS ORDERED: ePHEDrine/NS 25 MG/5 ML SYR IV ONE (12:00)
[2016-11-26] MEDS ORDERED: PROPOFOL 200 MG/20 ML AMP IV ONE (12:00)
[2016-11-26] MEDS ORDERED: ceFAZolin 1,000 MG/NS 100 ML IV SCH ×2 (12:15)
[2016-11-26] MEDS ORDERED: POVIDONE IODINE 5% (ANTISEPSIS KIT) 4 APPLICATIONS EACH NARE PRN (12:15)
[2016-11-26] MEDS ORDERED: CHLORHEXIDINE GLUCONATE 2 % 1 PACK (2 CLOTHS) TOPICAL PRN (12:15)
[2016-11-26] MEDS ORDERED: SODIUM CHLORID 0.9% 500 ML IV PRN (12:15)
[2016-11-26] MEDS ORDERED: LACTATED RINGER'S 1000 ML IV PRN (12:15)
[2016-11-26] MEDS ORDERED: INSULIN HUMAN REGULAR 1,000 UNITS/10 ML VIAL SQ PRN (12:15)
[2016-11-26] MEDS ORDERED: METOPROLOL TARTRATE 25 MG TAB PO PRN (12:15)
[2016-11-26] MEDS ORDERED: ALVIMOPAN 12 MG CAPSULE - On Call PO SCH (12:15)
[2016-11-26] MEDS ORDERED: DEXT 5%-NACL 0.9% 1000 ML INJ 1,000 ML IV SCH (12:15)
[2016-11-26] MEDS ORDERED: METRONIDAZOLE 500 MG/100 ML ISONTONIC SOLN IV SCH (12:15)
[2016-11-26 12:45] VITALS: BP 107/42; PULSE 66; RESP 16; TEMP 98.5; O2SAT 99
--- NOTE | 2016-11-26 13:24 | PD.HP.UP ---
H&P Update Note The Pre-Admit History and Physical Examination regarding the above named patient was reviewed (including, but not limited to, vital signs, heart, lungs, co-morbid conditions), and upon re-examination it is noted that: the patient's condition has not significantly changed since the last examination. Dillon Marie MD Nov 26, 2016 13:24
[2016-11-26] MEDS ORDERED: MIDAZOLAM HCL 2 MG/2 ML VIAL ONE (13:30)
[2016-11-26] MEDS ORDERED: fentaNYL CITRATE 250 MCG/5 ML AMP ONE (13:30)
[2016-11-26] MEDS ORDERED: FAMOTIDINE 20 MG/2 ML VIAL ONE (13:31)
[2016-11-26] MEDS ORDERED: SUGAMMADEX SODIUM 200 MG/2 ML VIAL IV PUSH ONE ×4 (14:24→14:54)
[2016-11-26] MEDS: D5-LR + KCL 20 MEQ INJ 1,000 ML IV SCH ×2 (14:50→22:21)
[2016-11-26] MEDS ORDERED: NALOXONE HCL 0.4 MG/ML AMP IV PRN (15:00)
[2016-11-26] MEDS ORDERED: POTASSIUM CHLOR 40 MEQ PREMIX 100 ML IV PRN (15:00)
[2016-11-26] MEDS ORDERED: ZOLPIDEM TARTRATE 5 MG TAB PO PRN (15:00)
[2016-11-26] MEDS ORDERED: BENZOCAINE 6 MG/MENTHOL 10 MG LOZENGE BUCCAL PRN (15:00)
[2016-11-26] MEDS ORDERED: POTASSIUM CHLOR 20 MEQ PREMIX 100 ML IV PRN (15:00)
[2016-11-26] MEDS ORDERED: ACETAMINOPHEN/HYDROcodone 325 MG/5 MG TAB PO PRN (15:00)
[2016-11-26] MEDS ORDERED: ENALAPRILAT 1.25 MG/ML VIAL IV PRN (15:00)
[2016-11-26] MEDS ORDERED: MORPHINE SULFATE 30 MG/30 ML PCA IV SCH (15:00)
[2016-11-26] MEDS ORDERED: ENALAPRILAT 2.5 MG/2 ML VIAL IV PRN (15:00)
[2016-11-26] MEDS ORDERED: Post-op Orders (for Pharmacy) MISC XX ONE (15:00)
[2016-11-26] MEDS ORDERED: SODIUM CHLORIDE 0.9% FLUSH 10 ML FLUSH IV FLUSH PRN (15:00)
[2016-11-26] MEDS ORDERED: *morphine SULFATE 8 MG/ML PERIprocedure ONLY ONE (15:40)
[2016-11-26 15:43] LABS: AUTOMATED NEUTROPHIL # 4.4 TH/MM3 (1.8-7.7); BASOPHIL % 0.4 % (0.0-2.0); EOSINOPHIL # 0.4 TH/MM3 (0-0.4); EOSINOPHIL % 4.9 % (0.0-4.0); HEMATOCRIT 33.3 % (35.0-46.0); HEMO FLAGS DIFF FINAL; LYMPH % 31.9 % (9.0-44.0); LYMPHOCYTE # 2.6 TH/MM3 (1.0-4.8); MEAN CELL VOLUME 83.3 FL (80.0-100.0); MEAN CORPUSCULAR HEMOGLOBIN 26.6 PG (27.0-34.0); MONO % 8.6 % (0.0-8.0); NEUT % 54.2 % (16.0-70.0); PLATELET COUNT 121 TH/MM3 (150-450); RED CELL DISTRIBUTION WIDTH 15.4 % (11.6-17.2); WHITE BLOOD COUNT 8.1 TH/MM3 (4.0-11.0)
[2016-11-26 15:46] LABS: BICARBONATE 22.3 MEQ/L (21.0-32.0); POTASSIUM 3.8 MEQ/L (3.5-5.1)
[2016-11-26] MEDS ORDERED: DO NOT ADM ANY ANTICOAGULANT DRUGS PRN (17:30)
[2016-11-26] MEDS: METOCLOPRAMIDE HCL 10 MG/2 ML VIAL IVS SCH (18:00)
[2016-11-26] MEDS: ONDANSETRON HCL 4 MG/2 ML VIAL IV PRN (18:11)
[2016-11-26 20:00] VITALS: BP 107/58; PULSE 78; RESP 20; TEMP 96.7; O2SAT 97
[2016-11-26 20:26] VITALS: RESP 18
[2016-11-26] MEDS: metroNIDAZOLE 500 MG INJ 100 ML IV SCH (20:34)
[2016-11-26] MEDS: ceFAZolin 2 GM PREMIX 50 ML IV SCH (20:34)
[2016-11-26] MEDS: PCA - TOTAL MG MORPHINE DELIVERED PER SHIFT SCH (20:35)
[2016-11-26] MEDS: SODIUM CHLORIDE 0.9% FLUSH 10 ML FLUSH IV FLUSH SCH (20:35)
[2016-11-27] VITALS (9 sets, daily range): BP systolic 91–116; BP diastolic 48–57; PULSE 65–83; RESP 16–18; TEMP 97–98.7; O2SAT 96–98
[2016-11-27] MEDS: KETOROLAC TROMETHAMINE 30 MG/ML (IVP) VIAL IVP PRN ×4 (00:50→22:54)
[2016-11-27] MEDS: METOCLOPRAMIDE HCL 10 MG/2 ML VIAL IVS SCH ×4 (05:13→21:35)
[2016-11-27] MEDS: D5-LR + KCL 20 MEQ INJ 1,000 ML IV SCH ×3 (05:13→21:29)
[2016-11-27] MEDS: metroNIDAZOLE 500 MG INJ 100 ML IV SCH ×2 (05:13→12:59)
[2016-11-27] MEDS: ceFAZolin 2 GM PREMIX 50 ML IV SCH ×2 (05:13→12:58)
[2016-11-27] MEDS: PCA - TOTAL MG MORPHINE DELIVERED PER SHIFT SCH ×2 (05:16→14:00)
[2016-11-27 05:44] LABS: AUTOMATED NEUTROPHIL # 9.3 TH/MM3 (1.8-7.7); BASOPHIL % 0.4 % (0.0-2.0); EOSINOPHIL % 0.2 % (0.0-4.0); HEMATOCRIT 28.4 % (35.0-46.0); HEMO FLAGS DIFF FINAL; LYMPH % 7.1 % (9.0-44.0); LYMPHOCYTE # 0.8 TH/MM3 (1.0-4.8); MEAN CELL VOLUME 82.3 FL (80.0-100.0); MEAN CORPUSCULAR HEMOGLOBIN 27.9 PG (27.0-34.0); MEAN CORPUSCULAR HGB CONC 33.9 % (32.0-36.0); MONO % 6.2 % (0.0-8.0); NEUT % 86.1 % (16.0-70.0); PLATELET COUNT 100 TH/MM3 (150-450); RED BLOOD COUNT 3.45 MIL/MM3 (4.00-5.30); RED CELL DISTRIBUTION WIDTH 15.7 % (11.6-17.2); WHITE BLOOD COUNT 10.8 TH/MM3 (4.0-11.0)
[2016-11-27 05:53] LABS: BICARBONATE 22.8 MEQ/L (21.0-32.0); POTASSIUM 3.7 MEQ/L (3.5-5.1)
[2016-11-27] MEDS: PANTOPRAZOLE SODIUM 40 MG VIAL IVP SCH (08:42)
[2016-11-27] MEDS: ALVIMOPAN 12 MG CAPSULE - Post-op dosing PO SCH ×2 (08:42→21:27)
[2016-11-27] MEDS: SODIUM CHLORIDE 0.9% FLUSH 10 ML FLUSH IV FLUSH SCH ×2 (08:42→21:29)
--- NOTE | 2016-11-27 16:47 | HHI.PR ---
Subjective Remarks No N or V. C/O Morphine causing migraine. Objective Vital Signs Date Time Temp Pulse Resp B/P Pulse Ox O2 Delivery O2 Flow Rate FiO2 11/27/16 16:00 98.5 73 16 116/57 97 11/27/16 15:19 98 21 11/27/16 14:00 18 11/27/16 12:00 97.9 71 16 102/48 97 11/27/16 08:06 97 21 11/27/16 08:00 97.4 65 16 91/48 96 11/27/16 05:19 18 11/27/16 05:16 18 11/27/16 04:00 97.0 65 18 97/53 98 11/27/16 00:00 97.1 73 18 97/51 97 11/26/16 20:35 18 11/26/16 20:26 18 11/26/16 20:00 96.7 78 20 107/58 97 11/26/16 17:55 73 14 113/57 99 Nasal Cannula 2 11/26/16 17:45 77 14 114/58 99 Nasal Cannula 2 11/26/16 17:30 75 14 111/57 99 Nasal Cannula 2 11/26/16 17:15 72 14 111/59 99 Nasal Cannula 2 11/26/16 17:00 75 14 119/63 100 Nasal Cannula 2 11/26/16 16:48 14 I/O 11/26/16 11/26/16 11/26/16 11/27/16 11/27/16 11/27/16 06:59 14:59 22:59 06:59 14:59 22:59 Intake Total 2189 ml 1094 ml 0 ml Output Total 620 ml 300 ml 800 ml Balance 1569 ml 794 ml -800 ml Intake Oral 0 ml 0 ml 0 ml IV Total 1189 ml 1094 ml Other 1000 ml Output Urine Total 600 ml 300 ml 800 ml Estimated Blood Loss 20 ml # Bowel Movements 0 0 0 Result Diagram: 11/27/1641611/27/16416 Objective Remarks VS-S Abd: soft,dressing dry Labs- OK I&Os- OK Assessment and Plan Assessment and Plan Stable POD#1 D/C mcclain,advance diet, Restart Imitrex Dillon Marie MD Nov 27, 2016 16:47
[2016-11-27] MEDS ORDERED: SUMAtriptan SUCCINATE 50 MG TAB PO PRN (18:00)
[2016-11-27] MEDS ORDERED: ALVIMOPAN 12 MG CAPSULE PO SCH (21:00)
[2016-11-27] MEDS: ONDANSETRON HCL 4 MG/2 ML VIAL IV PRN (22:53)
[2016-11-28] VITALS: BP 122/59; PULSE 79; RESP 18; TEMP 97.9; O2SAT 96
[2016-11-28 05:21] LABS: AUTOMATED NEUTROPHIL # 9.2 TH/MM3 (1.8-7.7); BASOPHIL % 0.2 % (0.0-2.0); EOSINOPHIL # 0.5 TH/MM3 (0-0.4); EOSINOPHIL % 4.5 % (0.0-4.0); HEMATOCRIT 29.5 % (35.0-46.0); HEMO FLAGS DIFF FINAL; LYMPH % 7.7 % (9.0-44.0); LYMPHOCYTE # 0.9 TH/MM3 (1.0-4.8); MEAN CELL VOLUME 81.9 FL (80.0-100.0); MEAN CORPUSCULAR HEMOGLOBIN 27.6 PG (27.0-34.0); MEAN CORPUSCULAR HGB CONC 33.7 % (32.0-36.0); MONO % 8.2 % (0.0-8.0); NEUT % 79.4 % (16.0-70.0); PLATELET COUNT 115 TH/MM3 (150-450); RED BLOOD COUNT 3.61 MIL/MM3 (4.00-5.30); RED CELL DISTRIBUTION WIDTH 15.8 % (11.6-17.2); WHITE BLOOD COUNT 11.6 TH/MM3 (4.0-11.0)
[2016-11-28 05:30] LABS: BICARBONATE 29.2 MEQ/L (21.0-32.0); POTASSIUM 3.7 MEQ/L (3.5-5.1)
[2016-11-28] MEDS: METOCLOPRAMIDE HCL 10 MG/2 ML VIAL IVS SCH (06:00)
[2016-11-28 08:00] VITALS: BP_SYST 138; BP_SYST 95; BP_DIAS 138; BP_DIAS 68; PULSE 94; RESP 18; TEMP 99; O2SAT 95
[2016-11-28] MEDS: ALVIMOPAN 12 MG CAPSULE - Post-op dosing PO SCH ×2 (08:46→21:29)
[2016-11-28] MEDS: PANTOPRAZOLE SODIUM 40 MG VIAL IVP SCH ×2 (09:00→10:07)
[2016-11-28] MEDS: SODIUM CHLORIDE 0.9% FLUSH 10 ML FLUSH IV FLUSH SCH ×2 (09:00→10:06)
[2016-11-28] MEDS: ONDANSETRON HCL 4 MG/2 ML VIAL IV PRN (10:08)
[2016-11-28] MEDS: KETOROLAC TROMETHAMINE 30 MG/ML (IVP) VIAL IVP PRN (10:22)
[2016-11-28 12:00] VITALS: BP 131/74; PULSE 65; RESP 20; TEMP 95.8; O2SAT 94
[2016-11-28] MEDS: SUMAtriptan SUCCINATE 50 MG TAB PO PRN ×2 (12:29→22:54)
[2016-11-28] MEDS: ACETAMINOPHEN/HYDROcodone 325 MG/5 MG TAB PO PRN ×3 (12:29→22:55)
--- NOTE | 2016-11-28 13:09 | HHI.PR ---
Subjective Remarks No N or V. Having loose BMs. Objective Vital Signs Date Time Temp Pulse Resp B/P Pulse Ox O2 Delivery O2 Flow Rate FiO2 11/28/16 08:00 99.0 94 18 95/138 95 11/28/16 08:00 99.0 94 18 138/68 95 11/28/16 00:00 97.9 79 18 122/59 96 11/27/16 20:00 98.7 83 18 112/55 98 11/27/16 16:00 98.5 73 16 116/57 97 11/27/16 15:19 98 21 11/27/16 14:00 18 I/O 11/27/16 11/27/16 11/27/16 11/28/16 11/28/16 11/28/16 07:00 15:00 23:00 07:00 15:00 23:00 Intake Total 1094 ml 886 ml 460 ml 240 ml Output Total 300 ml 800 ml 350 ml 400 ml Balance 794 ml 86 ml 110 ml -160 ml Intake Oral 0 ml 0 ml 360 ml 240 ml IV Total 1094 ml 886 ml 100 ml Output Urine Total 300 ml 800 ml 350 ml 400 ml # Voids 4 # Bowel Movements 0 0 1 Result Diagram: 11/28/16 0449 11/28/16 0449 Objective Remarks VS-S Abd: soft,dressing removed. Wound clean Labs- OK I&Os- OK Assessment and Plan Assessment and Plan Stable POD#2 D/C IV. Oral Toradol. Probable D/C tomorrow Dillon Marie MD Nov 28, 2016 13:09
[2016-11-28 16:00] VITALS: BP 121/64; PULSE 88; RESP 18; TEMP 96.8; O2SAT 96
[2016-11-28] MEDS: KETOROLAC TROMETHAMINE 10 MG TAB PO PRN ×2 (16:29→18:24)
--- NOTE | 2016-11-28 18:39 | MP ---
cc: LUCITA MARIE M.D. DATE OF SURGERY 11/28/16 PREOPERATIVE DIAGNOSIS Diverting loop ileostomy. POSTOPERATIVE DIAGNOSIS Diverting loop ileostomy. PROCEDURE Closure of diverting loop ileostomy, small bowel resection. ANESTHESIA General endotracheal. SURGEON Dr. Marie. FEED PREPARATION OPERATOR Dr. Boland. ESTIMATED BLOOD LOSS Minimal. OPERATING TIME 35 minutes. OPERATIVE FINDINGS This patient had a diverting loop ileostomy done at the time of a very low anterior resection and for this reason she is here now for closure. At surgery the small bowel was mobilized from the abdominal wall and rectus muscles and each end of the ileum was identified and excision of the stoma was done and closure of the ileostomy was done. OPERATIVE TECHNIQUE The patient was placed on the table in the spine position. After adequate general endotracheal anesthesia the ileostomy mucosa was sutured closed with 3-0 Vicryl suture. The abdomen was then prepped and draped in the usual manner and elliptical incision was made vertically around the stoma and taken down through the subcutaneous tissue to the rectus fascia. Once this was done the serosa of the small bowel was mobilized from the fascia and the rectus muscle until the peritoneal cavity was entered. Once the peritoneal cavity was entered the remainder of the attachments were dissected free with sharp dissection and electrocautery. The proximal and distal limbs of the ileum were brought up out of the abdominal cavity and the distal ileum was clamped between Sadi clamps and divided. The proximal ileum was divided with a ISI 55 stapling device and the mesentery was clamped, cut and ligated with 0 Vicryl ligatures. Next, the anastomosis was carried out along the antimesenteric border of the bowel using the Ethicon ISI 55 stapling device and the enterotomy was then closed with a TX 60 blue staple height stapling device. Once this was done hemostasis was maintained throughout with electrocautery and ligature. The mesentery was closed with interrupted 3-0 Vicryl sutures and the bowel was replaced in the abdominal cavity. The abdominal cavity was then closed in layers vertically using a single stranded #1 PDS for the posterior rectus sheath and a single stranded #1 PDS for the anterior rectus sheath. Subcutaneous tissue was irrigated thoroughly with saline solution, aspirated dry. Hemostasis was taken care of with electrocautery. Subcutaneous tissue was approximated with interrupted 3-0 Vicryl sutures and the skin was closed with 3-0 Vicryl subcuticular suture and a dressing was applied. Sponge, needle, instrument counts were reported as correct. Estimated blood loss was minimal. Operating time was 35 minutes. The patient tolerated the procedure well and left the operating room in good condition. Lucita Marie MD JDAVID/ANDRES /2:55 PM /6:28 PM
[2016-11-28 20:00] VITALS: BP 127/64; PULSE 73; RESP 18; TEMP 97.4; O2SAT 96
[2016-11-29] VITALS: BP_SYST 130; BP_SYST 136; BP_DIAS 64; BP_DIAS 77; PULSE 75; RESP 18; TEMP 97.7; O2SAT 95
[2016-11-29] MEDS: KETOROLAC TROMETHAMINE 10 MG TAB PO PRN ×2 (02:55→10:22)
[2016-11-29] MEDS: ACETAMINOPHEN/HYDROcodone 325 MG/5 MG TAB PO PRN ×2 (04:10→08:32)
[2016-11-29 08:00] VITALS: BP 122/59; PULSE 69; RESP 16; TEMP 97; O2SAT 97
[2016-11-29] MEDS: ALVIMOPAN 12 MG CAPSULE - Post-op dosing PO SCH (08:31)
[2016-11-29] MEDS ORDERED: SUMAtriptan SUCCINATE 25 MG TAB PO PRN (09:00)
--- NOTE | 2016-11-29 10:11 | HHI.DCPOC ---
Discharge Care Plan Diagnosis: (1) status post Ileostomy closure Your Health Problems Are: Incision/Drains Appetite Changes Irregular Bowel Function Exercise Tolerance Goals to Promote Your Health * To prevent worsening of your condition and complications * To maintain your health at the optimal level Directions to Meet Your Goals Take your medications as prescribed Follow your dietary instruction Follow activity as directed Keep your appointments as scheduled Take your immunizations and boosters as scheduled If your symptoms worsen call your PCP, if no PCP go to Urgent Care Center or Emergency Room Smoking is Dangerous to Your Health. Avoid second hand smoke Call the 24-hour hour crisis hotline for domestic abuse at Dillon Marie MD Nov 29, 2016 10:11
== END 2016-11-29 14:52 | disposition home or self-care (01) | DRG 331 ==
LOC: HSDI 11-26 11:47 → N07B 11-26 18:04
PROVIDERS: ADMIT Colon & Rectal Surgery; ATTEND Colon & Rectal Surgery
PROC: 0DBB0ZZ Excision of Ileum, Open Approach (ICD-10-PCS; principal; 2016-11-26 13:35)
DX: Z43.2 Encounter for attention to ileostomy (principal); G43.909 Migraine, unspecified, not intractable, without status migrainosus
CPT/HCPCS: 76937; 80048; 85025; 86850; 86900; 86901; 88304; 94150; C9113; J0690; J1885; J2250; J2270; J2405; J2765; J3010; J3480; J7120

== ENCOUNTER → 2016-11-19 | Outpatient (CLI) | payer OTHER ==
[~2016-11-19] MED LIST changes: +CALC1TAB34 PO; +ECON0.052 TOPICAL; +HYDR-3516 PO; +LOPE2TAB PO; +MULT-65 PO
[2016-11-19 13:56] LABS: AUTOMATED NEUTROPHIL # 4.1 TH/MM3 (1.8-7.7); BASOPHIL # 0.1 TH/MM3 (0-0.2); BASOPHIL % 0.7 % (0.0-2.0); EOSINOPHIL # 0.4 TH/MM3 (0-0.4); EOSINOPHIL % 6.2 % (0.0-4.0); HEMATOCRIT 38.1 % (35.0-46.0); HEMO FLAGS DIFF FINAL; LYMPH % 24.6 % (9.0-44.0); LYMPHOCYTE # 1.7 TH/MM3 (1.0-4.8); MEAN CORPUSCULAR HEMOGLOBIN 26.8 PG (27.0-34.0); MEAN CORPUSCULAR HGB CONC 32.3 % (32.0-36.0); MONO % 8.4 % (0.0-8.0); NEUT % 60.1 % (16.0-70.0); PLATELET COUNT 162 TH/MM3 (150-450); RED BLOOD COUNT 4.59 MIL/MM3 (4.00-5.30); RED CELL DISTRIBUTION WIDTH 15.3 % (11.6-17.2); WHITE BLOOD COUNT 6.9 TH/MM3 (4.0-11.0)
[2016-11-19 14:04] LABS: APTT (PATIENT) 26.6 SEC (24.3-30.1); INTERNATIONAL NORMALIZED RATIO 0.9 RATIO; PROTHROMBIN TIME - PATIENT 9.8 SEC (9.8-11.6)
[2016-11-19 14:07] LABS: BLOOD, URINE NEG (NEG); GLUCOSE,URINE NEG (NEG); GRANULAR CAST, URINE 8 /lpf; HYALINE CAST, URINE 8 /lpf (RARE); KETONE, URINE NEG (NEG); MUCUS URINE FEW /lpf (OCC); NITRITE,URINE NEG (NEG); URINE COLOR YELLOW (YELLW/STRAW)
[2016-11-19 14:09] LABS: COMMENT (UR) CULT NOT INDICATED; CULTURE IF INDICATED CULT NOT INDICATED
[2016-11-19 14:13] LABS: ALT (GPT) 31 U/L (10-53); ANION GAP 7 MEQ/L (5-15); AST (GOT) 27 U/L (15-37); BICARBONATE 22.6 MEQ/L (21.0-32.0); BLOOD UREA NITROGEN 20 MG/DL (7-18); CHLORIDE 106 MEQ/L (98-107); GLOMERULAR FILTRATION RATE 78 ML/MIN (>89); GLUCOSE,FASTING 81 MG/DL (74-99); POTASSIUM 4.7 MEQ/L (3.5-5.1); SODIUM (NA) 136 MEQ/L (136-145)
[2016-11-19 14:16] LABS: ALKALINE PHOSPHATASE 84 U/L (45-117); TOTAL BILIRUBIN ADULT 0.5 MG/DL (0.2-1.0)
== END ==
LOC: CPRE 12:18
PROVIDERS: ATTEND Colon & Rectal Surgery
DX: Z01.812 Encounter for preprocedural laboratory examination (principal); K94.19 Other complications of enterostomy
CPT/HCPCS: 36415; 80053; 81001; 85025; 85610; 85730